=== PATIENT | male | born 2000 | race Caucasian/White ===

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

== ENCOUNTER 2018-02-05 12:48 | Emergency (ER) | payer MEDICAID ==
[2018-02-05 12:58] VITALS: BMI 28.0
[2018-02-05] MEDS ORDERED: DiphenhydrAMINE 50 mg/ml Inj IVP STA (12:59)
[2018-02-05 13:03] VITALS: RESP 18
[2018-02-05] MEDS ORDERED: DiphenhydrAMINE 50 mg/ml Inj ONE (13:03)
--- NOTE | 2018-02-05 13:03 | ED PDOC ---
Arrival/HPI - General Time Seen by Provider: 02/05/18 12:52 Historian: Patient - History of Present Illness Narrative History of Present Illness (Text): 02/05/18 13:00 17yo male with past medical history of asthma and eczema who present with the mother by the bedside for complaint of rash x minutes [employer]. states rash started when he finished showering with a new soap this afternoon. He denies previous history. Denies tongue swelling, nausea, vomiting, neck pain, any other inciting factors Past Medical History - Provider Review Nursing Documentation Reviewed: Yes - Tetanus Immunization Tetanus Immunization: Up to Date - Psychiatric Hx Substance Use: No Family/Social History - Physician Review Nursing Documentation Reviewed: Yes Family/Social History: Unknown Family HX Smoking Status: Never Smoked Hx Alcohol Use: No Hx Substance Use: No Allergies/Home Meds Allergies/Adverse Reactions: Allergies No Known Allergies Allergy (Verified 03/01/15 09:30) Review of Systems - Physician Review All systems were reviewed & negative as marked: Yes - Review of Systems Constitutional: Normal Eyes: Normal ENT: Normal Respiratory: Normal Cardiovascular: Normal Gastrointestinal: Normal Genitourinary Male: Normal Musculoskeletal: Normal Skin: Rash Neurological: Normal Endocrine: Normal Hemo/Lymphatic: Normal Psychiatric: Normal Physical Exam Vital Signs Reviewed: Yes Vital Signs Temp Pulse Resp BP Pulse Ox 02/05/18 16:05 98.2 F 72 18 126/71 99 02/05/18 15:00 98.0 F 79 18 130/65 100 02/05/18 13:03 97.7 F 89 18 132/67 100 02/05/18 13:02 98.2 F 90 18 132/67 100 Temperature: Afebrile Blood Pressure: Normal Pulse: Regular Respiratory Rate: Normal Appearance: Positive for: Well-Appearing, Non-Toxic, Comfortable Pain Distress: None Mental Status: Positive for: Alert and Oriented X 3 - Systems Exam Head: Present: Atraumatic, Normocephalic Pupils: Present: PERRL Extroacular Muscles: Present: EOMI Conjunctiva: Present: Normal Mouth: Present: Moist Mucous Membranes Neck: Present: Normal Range of Motion Respiratory/Chest: Present: Clear to Auscultation, Good Air Exchange. No: Respiratory Distress, Accessory Muscle Use Cardiovascular: Present: Regular Rate and Rhythm, Normal S1, S2. No: Murmurs Abdomen: No: Tenderness, Distention, Peritoneal Signs Back: Present: Normal Inspection Upper Extremity: Present: Normal Inspection. No: Cyanosis, Edema Lower Extremity: Present: Normal Inspection. 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 Pt was seen as soon as he arrived in emergency department . He was hemodynamically stable. No drooling. No SOB. No stridor was noted. He was treated with pepcid, Benadryl and solumedrol and was observed in emergency department for 3hrs On re evaluation pt's hives resolved. He stated that he feels much better. He was DC home with prednisone, pepcid and Benadryl He have a [employer] and was advised to follow up with the [employer]. - Medication Orders Current Medication Orders: Discontinued Medications Diphenhydramine HCl (Benadryl) 25 mg IVP STAT STA Stop: 02/05/18 13:00 Last Admin: 02/05/18 13:07 Dose: 25 mg IVP Administration Document 02/05/18 13:07 SRE (Rec: 02/05/18 13:07 [facility] [id number]) Charges for Administration # of IVP Administrations 1 Famotidine (Pepcid) 20 mg IVP STAT STA Stop: 02/05/18 12:59 Last Admin: 02/05/18 13:08 Dose: 20 mg IVP Administration Document 02/05/18 13:08 SRE (Rec: 02/05/18 13:08 [facility] [id number]) Charges for Administration # of IVP Administrations 1 Methylprednisolone (Solu-Medrol) 125 mg IVP STAT STA Stop: 02/05/18 12:59 Last Admin: 02/05/18 13:08 Dose: 125 mg IVP Administration Document 02/05/18 13:08 SRE (Rec: 02/05/18 13:08 [facility] [id number]) Charges for Administration # of IVP Administrations 1 Disposition/Present on Arrival - Present on Arrival Any Indicators Present on Arrival: No History of DVT/PE: No History of Uncontrolled Diabetes: No Urinary Catheter: No History Surgical Site Infection Following: None - Disposition Have Diagnosis and Disposition been Completed?: Yes Diagnosis: Allergic reaction Disposition: HOME/ ROUTINE Disposition Time: 16:00 Patient Plan: Discharge Condition: STABLE Discharge Instructions (ExitCare): Hives Additional Instructions: Follow up with a [employer] Stop using the new soap Return to emergency department for any new symptoms Prescriptions: DiphenhydrAMINE [Benadryl] 25 mg PO Q4 #30 cap Famotidine [Pepcid] 20 mg PO DAILY #10 tab predniSONE [Prednisone] 20 mg PO BID #8 tab Referrals: Ken Stevens MD [Primary Care Provider] - Follow up with primary Forms: [employer] (Romanian)
[2018-02-05 16:06] VITALS: BP 126/71; PULSE 72; TEMP 98.2; O2SAT 99
== END 2018-02-05 16:05 | disposition home or self-care (01) ==
LOC: ED 12:48
DX: T78.40XA Allergy, unspecified, initial encounter (principal); X58.XXXA Exposure to other specified factors, initial encounter
CPT/HCPCS: 96374; 96375; 99283; J1200; J2930